=== PATIENT | female | born 1960 | race Caucasian/White ===

== ENCOUNTER 2024-05-04 09:48 | Inpatient (IN) | payer MEDICAID ==
[~2024-05-04] VITALS: Ht 162.6 cm; Wt 79.5 kg
[2024-05-04] VITALS (29 sets, daily range): BP systolic 100–148; BP diastolic 60–91; PULSE 87–113; RESP 14–26; TEMP 98.4–99.6; O2SAT 90–100
[2024-05-04] MEDS: ringers solution, lacted 1,000 ML IV SCH (08:00)
[2024-05-04] MEDS: morphine 4 MG/ML inj SYRINge IV ONE ×2 (08:00→11:13)
[~2024-05-04 09:48] MED LIST: ALBUTEROL INH; BACL20TA PO; BUPR100T4 PO; BUSP10TA11 PO; LEVA15HF4 IH; LISI20TA28 PO; ONDA4TAB6 PO; OXYC-150 PO
[2024-05-04 11:04] LABS: BASOPHILS # (AUTO) 0.1 X10'3 (0-0.2); BASOPHILS % (AUTO) 0.4 % (0-1); EOSINOPHILS % (AUTO) 0.2 % (0-6); HEMATOCRIT 49.5 % (35.0-45.0); HEMOGLOBIN 16.7 g/dl (12.0-16.0); LYMPHOCYTES # (AUTO) 0.7 X10'3 (1.1-4.8); MEAN CORPUSCULAR HEMOGLOBIN 29.7 PG (27.0-31.0); MEAN CORPUSCULAR HGB CONC 33.8 g/dL (33.0-36.5); MEAN PLATELET VOLUME 8.1 FL (7.4-10.4); MONOCYTES # (AUTO) 0.8 X10'3 (0-0.9); MONOCYTES % (AUTO) 6.6 % (2-12); NEUTROPHILS # (AUTO) 10.8 X10'3 (1.8-7.7); NEUTROPHILS % (AUTO) 86.8 % (42-75); PLATELET COUNT 366 X10'3 (140-440); RED BLOOD COUNT 5.62 X10'6 (4.20-5.60); RED CELL DISTRIBUTION WIDTH 13.6 % (11.5-14.5); WHITE BLOOD COUNT 12.4 X10'3 (4.5-11.0)
[2024-05-04 11:18] LABS: ALANINE AMINOTRANSFERASE 28 U/L (12-78); ALBUMIN 2.5 G/DL (3.4-5.0); ALBUMIN/GLOBULIN RATIO 0.6 (1.1-1.5); ALKALINE PHOSPHATASE 75 IU/L (46-116); ANION GAP 10 (8-16); ASPARTATE AMINO TRANSFERASE 45 U/L (10-37); BILIRUBIN,TOTAL 0.9 MG/DL (0.1-1.0); BLOOD UREA NITROGEN 13 MG/DL (7-18); BUN/CREATININE RATIO 19.7 (10.0-20.0); CALCIUM 7.9 MG/DL (8.5-10.1); CHLORIDE 102 MMOL/L (99-107); CREATININE 0.66 MG/DL (0.40-0.90); GLUCOSE 142 MG/DL (70-104); POTASSIUM 3.5 MMOL/L (3.5-5.1); SODIUM 134 MMOL/L (135-145); TOTAL PROTEIN 6.7 G/DL (6.4-8.2); eCRCL 75 ML/MIN; eGFR 90 ML/MIN
[2024-05-04] MEDS: VANCOMYCIN 1,500MG inj. 1,500 MG in normal saline 500ml IV soln 300 ML IV STA (11:29)
[2024-05-04 13:10] LABS: CREATINE KINASE 804 U/L (26-192)
[2024-05-04] MEDS: normal saline 1000ml 1,000 ML IV ONE (13:45)
[2024-05-04 14:08] LABS: C-REACTIVE PROTEIN 17.29 MG/DL (0.0-0.5)
[2024-05-04] MEDS ORDERED: ceFAZolin 2gm in dextrose, iso 100 ML IV ONE (14:20)
[2024-05-04] MEDS ORDERED: HYDROmorphone/PF 0.2 MG/ML SYRINGE IV PRN (14:25)
[2024-05-04] MEDS ORDERED: proCHLORperazine 10 MG/2 ml inj IV PRN (14:25)
[2024-05-04] MEDS ORDERED: meperidine/PF 25mg/ml syringe IV PRN (14:25)
[2024-05-04] MEDS ORDERED: morphine 2 MG/ML inj. syringe IV PRN (14:25)
[2024-05-04] MEDS ORDERED: labetalol 20mg/4ml (5mg/ml) syringe IV PRN (14:25)
[2024-05-04] MEDS ORDERED: ondansetron/PF 4mg/2ml inj IV PRN (14:25)
[2024-05-04] MEDS ORDERED: hydrALAZINE 20mg/ml inj. IV PRN (14:25)
[2024-05-04] MEDS: ceFAZolin 2gm in dextrose, iso 50 ML IV ONE (14:26)
[2024-05-04] MEDS ORDERED: vancomycin 1,000mg inj ONE (14:27)
[2024-05-04] MEDS ORDERED: BUPIVAcaine 2.5mg/ml inj 50ml vial (contains preservative) ONE (14:27)
[2024-05-04] MEDS ORDERED: sevoflurane 250ml liquid IH ONE (14:31)
[2024-05-04] MEDS ORDERED: midazolam 1 mg/ML 2ml injection ONE (14:35)
[2024-05-04] MEDS ORDERED: fentaNYL /PF 50mcg/ml 5ml ampule ONE (14:35)
[2024-05-04] MEDS ORDERED: tranexamic acid 100mg/ml inj. ONE (14:43)
[2024-05-04] MEDS ORDERED: propofol inj 20 ML IV ONE (14:51)
[2024-05-04] MEDS ORDERED: LIDOcaine 2% (20mg/ml) 5ml vial ONE (14:51)
[2024-05-04] MEDS ORDERED: dexamethasone sod phosphate 4mg/ml inj. ONE (14:52)
[2024-05-04] MEDS ORDERED: ondansetron/PF 4mg/2ml inj ONE (14:52)
[2024-05-04] MEDS ORDERED: ePHEDrine 50MG/ML INJ. ONE (14:53)
[2024-05-04] MEDS ORDERED: 0.9 % SODIUM CHLORIDE 10 ML VIAL ONE (14:53)
[2024-05-04] MEDS ORDERED: HYDROcodone/acetaminophen 5mg/325mg tablet PO PRN (15:15)
[2024-05-04] MEDS ORDERED: bisacodyl 10mg suppository rectal RC PRN (15:15)
[2024-05-04] MEDS ORDERED: acetaminophen 650mg rectal suppository RC PRN (15:15)
[2024-05-04] MEDS ORDERED: acetaminophen 325mg tablet PO PRN ×2 (15:15)
[2024-05-04] MEDS ORDERED: diphenhydrAMINE 25mg capsule PO PRN (15:15)
[2024-05-04] MEDS ORDERED: diphenhydrAMINE 50 mg/ml inj IV PRN (15:15)
[2024-05-04] MEDS: morphine 4 MG/ML inj SYRINge IV PRN (15:42)
[2024-05-04] MEDS: acetaminophen 1,000mg/100ml IV 100 ML IV ONE (15:44)
[2024-05-04] MEDS: HYDROmorphone/PF 0.2 MG/ML SYRINGE IV PRN (15:47)
[2024-05-04 15:54] LABS: MAGNESIUM 1.8 MG/DL (1.5-2.4); PHOSPHORUS 2.9 MG/DL (2.3-4.5); PRO BRAIN NATRIURETIC PEPTIDE 76 PG/ML (0-125)
[2024-05-04] MEDS: piperacillin/tazo 4.5gm/100ml 100 ML IV SCH (16:40)
[2024-05-04 17:34] LABS: APTT 26 SECONDS (22-32); INR 1.4 INR; PROTHROMBIN TIME 14.4 SECONDS (9.0-12.0)
[2024-05-04 18:58] LABS: BILIRUBIN,URINE NEGATIVE (Neg); CLARITY,URINE CLOUDY (Clear); COLOR,URINE YELLOW (Yellow); GLUCOSE, URINE NEGATIVE (Neg); KETONES,URINE TRACE mg/dl (Neg); LEUKOCYTE ESTERASE ,URINE NEGATIVE (Neg); NITRITES, URINE NEGATIVE (Neg); OCCULT BLOOD,URINE TRACE-INTACT (Neg); PH,URINE 5.5 (4.8-8.0); PROTEIN,URINE 30 mg/dl (Neg); UROBILINOGEN,URINE 0.2 E.U/dL (0.2-1.0)
[2024-05-04 19:09] LABS: UA COLLECTION TYPE NON-SPECIFIED
[2024-05-04 19:10] LABS: BACTERIA,URINE 2+ /HPF (Neg); RBC,URINE 0-2 /HPF (0-2); SQUAMOUS EPITHELIAL CELL,UR MODERATE /LPF (FEW); WBC,URINE 20-30 /HPF (0-4)
[2024-05-04] MEDS: docusate sod 100mg capsule PO SCH (20:41)
[2024-05-04] MEDS: HYDROcodone/acetaminophen 10/325mg tab PO PRN (20:42)
[2024-05-04] MEDS: VANCOMYCIN 1GM 200ML H20 (PEG) 200 ML IV SCH (21:28)
[2024-05-05] VITALS (17 sets, daily range): BP systolic 121–146; BP diastolic 58–90; PULSE 76–92; RESP 12–19; TEMP 97.5–98.9; O2SAT 90–100
[2024-05-05] MEDS: normal saline 1000ml 1,000 ML IV SCH (01:19)
[2024-05-05 06:10] LABS: BASOPHILS % (AUTO) 0.3 % (0-1); EOSINOPHILS % (AUTO) 0.1 % (0-6); HEMATOCRIT 44.7 % (35.0-45.0); HEMOGLOBIN 15.1 g/dl (12.0-16.0); LYMPHOCYTES # (AUTO) 0.7 X10'3 (1.1-4.8); LYMPHOCYTES % (AUTO) 5.9 % (21-51); MEAN CORPUSCULAR HGB CONC 33.9 g/dL (33.0-36.5); MEAN CORPUSCULAR VOLUME 88.7 FL (78-98); MEAN PLATELET VOLUME 8.4 FL (7.4-10.4); MONOCYTES # (AUTO) 0.9 X10'3 (0-0.9); MONOCYTES % (AUTO) 7.2 % (2-12); NEUTROPHILS # (AUTO) 10.8 X10'3 (1.8-7.7); NEUTROPHILS % (AUTO) 86.5 % (42-75); PLATELET COUNT 389 X10'3 (140-440); RED BLOOD COUNT 5.03 X10'6 (4.20-5.60); RED CELL DISTRIBUTION WIDTH 13.8 % (11.5-14.5); WHITE BLOOD COUNT 12.5 X10'3 (4.5-11.0)
[2024-05-05 06:46] LABS: ALANINE AMINOTRANSFERASE 26 U/L (12-78); ALBUMIN 1.9 G/DL (3.4-5.0); ALBUMIN/GLOBULIN RATIO 0.4 (1.1-1.5); ALKALINE PHOSPHATASE 69 IU/L (46-116); ANION GAP 12 (8-16); BILIRUBIN,TOTAL 0.5 MG/DL (0.1-1.0); BLOOD UREA NITROGEN 18 MG/DL (7-18); BUN/CREATININE RATIO 18.8 (10.0-20.0); CALCIUM 7.6 MG/DL (8.5-10.1); CHLORIDE 101 MMOL/L (99-107); CHOLESTEROL 158 MG/DL (0-200); CREATININE 0.96 MG/DL (0.40-0.90); GLUCOSE 183 MG/DL (70-104); HDL CHOLESTEROL 36 MG/DL (35-60); SODIUM 132 MMOL/L (135-145); TOTAL CARBON DIOXIDE 19.5 MMOL/L (24-32); TOTAL PROTEIN 6.2 G/DL (6.4-8.2); eCRCL 54 ML/MIN; eGFR 59 ML/MIN
[2024-05-05 06:47] LABS: CHOL/HDL RATIO 4.4 (0.00-4.99); LDL CHOLESTEROL 92 MG/DL (50-100); TRIGLYCERIDES 146 MG/DL (20-135)
[2024-05-05 06:58] LABS: ASPARTATE AMINO TRANSFERASE 53 U/L (10-37); POTASSIUM 4.4 MMOL/L (3.5-5.1)
[2024-05-05] MEDS: pantoprazole 40mg Tablet.DR PO SCH (08:34)
[2024-05-05 15:30] LABS: C-REACTIVE PROTEIN 16.77 MG/DL (0.0-0.5)
[2024-05-05] MEDS ORDERED: sevoflurane 250ml liquid IH ONE (16:28)
[2024-05-05] MEDS ORDERED: fentaNYL/PF 50MCG/1 ML 2ML syringe ONE (16:29)
[2024-05-05] MEDS ORDERED: midazolam 1 mg/ML 2ml injection ONE (16:30)
[2024-05-05] MEDS ORDERED: propofol inj 20 ML IV ONE (16:31)
[2024-05-05] MEDS ORDERED: proCHLORperazine 10 MG/2 ml inj IV PRN (17:25)
[2024-05-05] MEDS ORDERED: morphine 2 MG/ML inj. syringe IV PRN (17:25)
[2024-05-05] MEDS ORDERED: morphine 4 MG/ML inj SYRINge IV PRN (17:25)
[2024-05-05] MEDS ORDERED: meperidine/PF 25mg/ml syringe IV PRN ×2 (17:25)
[2024-05-05] MEDS ORDERED: ondansetron/PF 4mg/2ml inj IV PRN (17:25)
[2024-05-05] MEDS: meperidine/PF 25mg/ml syringe IV PRN (17:36)
[2024-05-05] MEDS: ringers solution, lacted 1,000 ML IV SCH (18:16)
[2024-05-05] MEDS: VANCOMYCIN LEVEL IV ONE (20:16)
[2024-05-05] MEDS: morphine 2 MG/ML inj. syringe IV PRN (20:21)
[2024-05-06 02:00] VITALS: BP 124/66; PULSE 82; RESP 17; TEMP 97.6; O2SAT 97
[2024-05-06 06:00] VITALS: BP 124/70; PULSE 78; RESP 17; TEMP 97.3; O2SAT 96
[2024-05-06 07:15] LABS: BASOPHILS % (AUTO) 0.2 % (0-1); EOSINOPHILS % (AUTO) 0 % (0-6); HEMATOCRIT 44.4 % (35.0-45.0); HEMOGLOBIN 15.2 g/dl (12.0-16.0); LYMPHOCYTES # (AUTO) 1.2 X10'3 (1.1-4.8); LYMPHOCYTES % (AUTO) 13.1 % (21-51); MEAN CORPUSCULAR HEMOGLOBIN 30.3 PG (27.0-31.0); MEAN CORPUSCULAR HGB CONC 34.2 g/dL (33.0-36.5); MEAN CORPUSCULAR VOLUME 88.5 FL (78-98); MEAN PLATELET VOLUME 8.9 FL (7.4-10.4); MONOCYTES # (AUTO) 1.2 X10'3 (0-0.9); NEUTROPHILS # (AUTO) 6.8 X10'3 (1.8-7.7); NEUTROPHILS % (AUTO) 73.7 % (42-75); PLATELET COUNT 196 X10'3 (140-440); RED BLOOD COUNT 5.01 X10'6 (4.20-5.60); RED CELL DISTRIBUTION WIDTH 13.9 % (11.5-14.5); WHITE BLOOD COUNT 9.2 X10'3 (4.5-11.0)
[2024-05-06 07:36] LABS: ALANINE AMINOTRANSFERASE 20 U/L (12-78); ALBUMIN 1.8 G/DL (3.4-5.0); ALBUMIN/GLOBULIN RATIO 0.5 (1.1-1.5); ALKALINE PHOSPHATASE 53 IU/L (46-116); ANION GAP 9 (8-16); ASPARTATE AMINO TRANSFERASE 68 U/L (10-37); BILIRUBIN,TOTAL 0.4 MG/DL (0.1-1.0); BLOOD UREA NITROGEN 19 MG/DL (7-18); BUN/CREATININE RATIO 21.6 (10.0-20.0); C-REACTIVE PROTEIN 5.53 MG/DL (0.0-0.5); CALCIUM 7.3 MG/DL (8.5-10.1); CHLORIDE 101 MMOL/L (99-107); CREATININE 0.88 MG/DL (0.40-0.90); GLUCOSE 133 MG/DL (70-104); SODIUM 135 MMOL/L (135-145); TOTAL PROTEIN 5.7 G/DL (6.4-8.2); eCRCL 59 ML/MIN; eGFR 65 ML/MIN
[2024-05-06 07:38] LABS: POTASSIUM 4.3 MMOL/L (3.5-5.1)
[2024-05-06 10:00] VITALS: BP 167/81; PULSE 54; RESP 20; TEMP 98.8; O2SAT 92
[2024-05-06 10:30] VITALS: BP 146/69; PULSE 85; RESP 16; O2SAT 95
[2024-05-06 18:00] VITALS: BP 114/58; PULSE 71; RESP 16; TEMP 98.8; O2SAT 96
[2024-05-06] MEDS: VANCOMYCIN/WATER FOR INJ (PEG) 1.25GM/250 ML IVPB IV SCH (20:18)
[2024-05-06 21:35] LABS: CREATINE KINASE 1280 U/L (26-192)
[2024-05-06 22:00] VITALS: BP 111/50; PULSE 84; RESP 16; TEMP 98.8; O2SAT 95
[2024-05-06] MEDS: temazepam 15mg capsule PO PRN (22:25)
[2024-05-07 06:00] VITALS: BP 106/59; PULSE 83; RESP 17; TEMP 98.3; O2SAT 93
[2024-05-07 06:34] LABS: HEMATOCRIT 40.8 % (35.0-45.0); HEMOGLOBIN 13.7 g/dl (12.0-16.0); MEAN CORPUSCULAR HEMOGLOBIN 29.8 PG (27.0-31.0); MEAN CORPUSCULAR HGB CONC 33.7 g/dL (33.0-36.5); MEAN CORPUSCULAR VOLUME 88.4 FL (78-98); MEAN PLATELET VOLUME 7.6 FL (7.4-10.4); PLATELET COUNT 327 X10'3 (140-440); RED BLOOD COUNT 4.61 X10'6 (4.20-5.60); RED CELL DISTRIBUTION WIDTH 14.1 % (11.5-14.5); WHITE BLOOD COUNT 7.3 X10'3 (4.5-11.0)
[2024-05-07 06:35] LABS: BASOPHILS % (AUTO) 0.3 % (0-1); EOSINOPHILS % (AUTO) 0.1 % (0-6); LYMPHOCYTES % (AUTO) 14.3 % (21-51); MONOCYTES # (AUTO) 0.7 X10'3 (0-0.9); MONOCYTES % (AUTO) 10.3 % (2-12); NEUTROPHILS # (AUTO) 5.5 X10'3 (1.8-7.7)
[2024-05-07 06:43] LABS: ANION GAP 5 (8-16); BILIRUBIN,TOTAL 0.2 MG/DL (0.1-1.0); BLOOD UREA NITROGEN 14 MG/DL (7-18); BUN/CREATININE RATIO 19.2 (10.0-20.0); CALCIUM 6.8 MG/DL (8.5-10.1); CHLORIDE 101 MMOL/L (99-107); CREATININE 0.73 MG/DL (0.40-0.90); GLUCOSE 144 MG/DL (70-104); POTASSIUM 3.6 MMOL/L (3.5-5.1); SODIUM 133 MMOL/L (135-145); TOTAL CARBON DIOXIDE 26.8 MMOL/L (24-32); eCRCL 71 ML/MIN; eGFR 81 ML/MIN
[2024-05-07 06:44] LABS: ALANINE AMINOTRANSFERASE 23 U/L (12-78); ALBUMIN 1.5 G/DL (3.4-5.0); ALBUMIN/GLOBULIN RATIO 0.4 (1.1-1.5); ALKALINE PHOSPHATASE 40 IU/L (46-116); ASPARTATE AMINO TRANSFERASE 81 U/L (10-37); C-REACTIVE PROTEIN 1.96 MG/DL (0.0-0.5); TOTAL PROTEIN 4.9 G/DL (6.4-8.2)
[2024-05-07 10:00] VITALS: BP 106/67; PULSE 81; RESP 16; TEMP 99.8; O2SAT 94
[2024-05-07] MEDS: ondansetron 4mg rapidly disintigrating tab PO PRN (15:56)
[2024-05-07 18:30] VITALS: BP 140/57; PULSE 78; RESP 22; TEMP 98.2; O2SAT 93
[2024-05-07] MEDS: ringers solution, lacted 1,000 ML IV ONE (20:30)
[2024-05-07 23:00] VITALS: BP 104/52; PULSE 80; RESP 20; TEMP 98.4; O2SAT 92
[2024-05-08] VITALS (8 sets, daily range): BP systolic 91–132; BP diastolic 48–77; PULSE 66–86; RESP 16–22; TEMP 97.4–98; O2SAT 91–98
[2024-05-08] MEDS: VANCOMYCIN LEVEL IV ONE (07:30)
[2024-05-08 09:22] LABS: BASOPHILS % (AUTO) 0.5 % (0-1); EOSINOPHILS % (AUTO) 0.1 % (0-6); HEMATOCRIT 42.5 % (35.0-45.0); HEMOGLOBIN 14.3 g/dl (12.0-16.0); LYMPHOCYTES # (AUTO) 1.8 X10'3 (1.1-4.8); MEAN CORPUSCULAR HEMOGLOBIN 29.7 PG (27.0-31.0); MEAN CORPUSCULAR HGB CONC 33.7 g/dL (33.0-36.5); MEAN CORPUSCULAR VOLUME 88.3 FL (78-98); MEAN PLATELET VOLUME 8.9 FL (7.4-10.4); MONOCYTES # (AUTO) 0.7 X10'3 (0-0.9); MONOCYTES % (AUTO) 9.9 % (2-12); NEUTROPHILS # (AUTO) 4.3 X10'3 (1.8-7.7); NEUTROPHILS % (AUTO) 63.5 % (42-75); PLATELET COUNT 193 X10'3 (140-440); RED BLOOD COUNT 4.81 X10'6 (4.20-5.60); RED CELL DISTRIBUTION WIDTH 13.9 % (11.5-14.5); WHITE BLOOD COUNT 6.8 X10'3 (4.5-11.0)
[2024-05-08 09:47] LABS: ALANINE AMINOTRANSFERASE 23 U/L (12-78); ALBUMIN 1.2 G/DL (3.4-5.0); ALBUMIN/GLOBULIN RATIO 0.4 (1.1-1.5); ALKALINE PHOSPHATASE 41 IU/L (46-116); ANION GAP 6 (8-16); ASPARTATE AMINO TRANSFERASE 66 U/L (10-37); BILIRUBIN,TOTAL 0.2 MG/DL (0.1-1.0); BLOOD UREA NITROGEN 11 MG/DL (7-18); BUN/CREATININE RATIO 17.7 (10.0-20.0); C-REACTIVE PROTEIN 2.51 MG/DL (0.0-0.5); CHLORIDE 100 MMOL/L (99-107); CREATININE 0.62 MG/DL (0.40-0.90); GLUCOSE 200 MG/DL (70-104); POTASSIUM 3.6 MMOL/L (3.5-5.1); SODIUM 131 MMOL/L (135-145); TOTAL CARBON DIOXIDE 24.9 MMOL/L (24-32); TOTAL PROTEIN 4.3 G/DL (6.4-8.2); eCRCL 84 ML/MIN; eGFR > 90 ML/MIN
[2024-05-08] MEDS: HYDROmorphone/PF 0.2 MG/ML SYRINGE IV PRN (12:45)
[2024-05-08 14:12] LABS: CREATINE KINASE 819 U/L (26-192)
[2024-05-08 14:14] LABS: BILIRUBIN,URINE NEGATIVE (Neg); CLARITY,URINE CLOUDY (Clear); COLOR,URINE YELLOW (Yellow); GLUCOSE, URINE NEGATIVE (Neg); KETONES,URINE NEGATIVE (Neg); LEUKOCYTE ESTERASE ,URINE MODERATE (Neg); NITRITES, URINE NEGATIVE (Neg); OCCULT BLOOD,URINE MODERATE (Neg); PROTEIN,URINE NEGATIVE (Neg); UROBILINOGEN,URINE 0.2 E.U/dL (0.2-1.0)
[2024-05-08 14:17] LABS: UA COLLECTION TYPE CLN CATCH MIDSTREAM
[2024-05-08 14:22] LABS: BACTERIA,URINE 2+ /HPF (Neg); WBC,URINE TNTC /HPF (0-4)
[2024-05-08 14:23] LABS: MUCUS STRANDS FEW /LPF (Neg); RENAL CELLS, URINE FEW /HPF; SQUAMOUS EPITHELIAL CELL,UR MODERATE /LPF (FEW); TRANSITIONAL EPI CELLS,URINE FEW /HPF; WBC CLUMPS,URINE FEW /HPF (NEGATIVE)
[2024-05-08 14:31] LABS: OSMOLALITY 271 MOSM/K (280-300)
[2024-05-08] MEDS: VANCOMYCIN 1GM 200ML H20 (PEG) 200 ML IV SCH (19:05)
[2024-05-08] MEDS: magnesium hydroxide 30ml (MOM) UD suspension PO PRN (22:21)
[2024-05-08] MEDS: ipratropium/albuterol 3ml nebule NEB ONE (23:24)
[2024-05-09 06:00] VITALS: BP 127/63; PULSE 63; RESP 15; TEMP 98.2; O2SAT 95
[2024-05-09 06:07] LABS: BASOPHILS % (AUTO) 0.3 % (0-1); EOSINOPHILS % (AUTO) 0.5 % (0-6); HEMATOCRIT 40.2 % (35.0-45.0); HEMOGLOBIN 13.7 g/dl (12.0-16.0); LYMPHOCYTES # (AUTO) 1.5 X10'3 (1.1-4.8); LYMPHOCYTES % (AUTO) 22.5 % (21-51); MEAN CORPUSCULAR HEMOGLOBIN 29.6 PG (27.0-31.0); MEAN CORPUSCULAR HGB CONC 34.1 g/dL (33.0-36.5); MEAN CORPUSCULAR VOLUME 86.9 FL (78-98); MEAN PLATELET VOLUME 7.6 FL (7.4-10.4); MONOCYTES # (AUTO) 0.7 X10'3 (0-0.9); MONOCYTES % (AUTO) 10.9 % (2-12); NEUTROPHILS # (AUTO) 4.5 X10'3 (1.8-7.7); NEUTROPHILS % (AUTO) 65.8 % (42-75); PLATELET COUNT 338 X10'3 (140-440); RED BLOOD COUNT 4.63 X10'6 (4.20-5.60); RED CELL DISTRIBUTION WIDTH 13.8 % (11.5-14.5); WHITE BLOOD COUNT 6.8 X10'3 (4.5-11.0)
[2024-05-09 06:43] LABS: GLUCOSE 122 MG/DL (70-104)
[2024-05-09 06:44] LABS: ALANINE AMINOTRANSFERASE 23 U/L (12-78); ALBUMIN 1.3 G/DL (3.4-5.0); ALBUMIN/GLOBULIN RATIO 0.4 (1.1-1.5); ALKALINE PHOSPHATASE 39 IU/L (46-116); ANION GAP 6 (8-16); ASPARTATE AMINO TRANSFERASE 60 U/L (10-37); BILIRUBIN,TOTAL 0.2 MG/DL (0.1-1.0); BLOOD UREA NITROGEN 10 MG/DL (7-18); BUN/CREATININE RATIO 17.2 (10.0-20.0); CALCIUM 6.6 MG/DL (8.5-10.1); CHLORIDE 102 MMOL/L (99-107); CREATININE 0.58 MG/DL (0.40-0.90); POTASSIUM 3.5 MMOL/L (3.5-5.1); SODIUM 134 MMOL/L (135-145); TOTAL CARBON DIOXIDE 25.7 MMOL/L (24-32); TOTAL PROTEIN 4.3 G/DL (6.4-8.2); eCRCL 89 ML/MIN; eGFR > 90 ML/MIN
[2024-05-09] MEDS: multivitamins, therapeutics tablet PO SCH (13:36)
[2024-05-09] MEDS: JUVEN Smoothie Arginine/Glut./Ca2+Bmb (Juven 19.3pkt) 240ml cup PO SCH (17:44)
[2024-05-09 18:00] VITALS: BP 133/72; PULSE 72; RESP 18; TEMP 97.6; O2SAT 98
[2024-05-09] MEDS: VANCOMYCIN LEVEL IV ONE (18:30)
[2024-05-09 20:00] VITALS: RESP 18; O2SAT 96
[2024-05-09] MEDS: mag hydrox/Alum hydrox/simeth 30ml oral suspension PO PRN (20:55)
[2024-05-09 22:00] VITALS: BP 112/60; PULSE 71; RESP 17; TEMP 98.4; O2SAT 98
[2024-05-10 07:33] VITALS: BP 112/57; PULSE 67; RESP 18; TEMP 98; O2SAT 97
[2024-05-10 07:45] VITALS: RESP 16
[2024-05-10 09:59] LABS: BASOPHILS % (AUTO) 0.3 % (0-1); EOSINOPHILS # (AUTO) 0.2 X10'3 (0-0.9); EOSINOPHILS % (AUTO) 2.2 % (0-6); HEMATOCRIT 38.6 % (35.0-45.0); HEMOGLOBIN 13.1 g/dl (12.0-16.0); LYMPHOCYTES # (AUTO) 1.8 X10'3 (1.1-4.8); LYMPHOCYTES % (AUTO) 26.4 % (21-51); MEAN CORPUSCULAR HEMOGLOBIN 29.6 PG (27.0-31.0); MEAN CORPUSCULAR VOLUME 87.2 FL (78-98); MEAN PLATELET VOLUME 7.2 FL (7.4-10.4); MONOCYTES # (AUTO) 0.6 X10'3 (0-0.9); MONOCYTES % (AUTO) 8.4 % (2-12); NEUTROPHILS # (AUTO) 4.3 X10'3 (1.8-7.7); NEUTROPHILS % (AUTO) 62.7 % (42-75); PLATELET COUNT 399 X10'3 (140-440); RED BLOOD COUNT 4.43 X10'6 (4.20-5.60); RED CELL DISTRIBUTION WIDTH 14.1 % (11.5-14.5); WHITE BLOOD COUNT 6.8 X10'3 (4.5-11.0)
[2024-05-10 10:00] VITALS: BP 119/61; PULSE 65; RESP 20; TEMP 97.5; O2SAT 95
[2024-05-10 10:31] LABS: ALANINE AMINOTRANSFERASE 19 U/L (12-78); ALBUMIN 1.2 G/DL (3.4-5.0); ALBUMIN/GLOBULIN RATIO 0.4 (1.1-1.5); ALKALINE PHOSPHATASE 40 IU/L (46-116); ANION GAP 7 (8-16); ASPARTATE AMINO TRANSFERASE 43 U/L (10-37); BILIRUBIN,TOTAL 0.2 MG/DL (0.1-1.0); BLOOD UREA NITROGEN 11 MG/DL (7-18); BUN/CREATININE RATIO 18.6 (10.0-20.0); CHLORIDE 101 MMOL/L (99-107); CREATININE 0.59 MG/DL (0.40-0.90); GLUCOSE 218 MG/DL (70-104); POTASSIUM 3.4 MMOL/L (3.5-5.1); SODIUM 132 MMOL/L (135-145); TOTAL CARBON DIOXIDE 24.3 MMOL/L (24-32); TOTAL PROTEIN 4.6 G/DL (6.4-8.2); eCRCL 88 ML/MIN; eGFR > 90 ML/MIN
[2024-05-10] MEDS ORDERED: potassium Cl 20 mEq SR tablet PO PRN (11:15)
[2024-05-10] MEDS: potassium Cl 20 mEq SR tablet PO PRN (11:34)
[2024-05-10] MEDS: oxyCODONE/APAP 10/325mg tablet PO PRN (11:36)
[2024-05-10] MEDS ORDERED: acetaminophen 325mg tablet PO PRN (15:45)
[2024-05-10 18:00] VITALS: BP 110/54; PULSE 70; RESP 20; TEMP 98.1; O2SAT 97
[2024-05-10] MEDS: heparin, porcine 5000 units/ml vial SQ SCH (19:36)
[2024-05-10] MEDS: HYDROmorphone/PF 0.2 MG/ML SYRINGE IV PRN ×2 (19:38→23:12)
[2024-05-10 20:00] VITALS: RESP 20; O2SAT 97
[2024-05-10] MEDS: VANCOMYCIN/WATER FOR INJ (PEG) 1.25GM/250 ML IVPB IV SCH (21:57)
[2024-05-10 22:00] VITALS: BP 126/67; PULSE 74; RESP 16; TEMP 98.4; O2SAT 96
[2024-05-11] VITALS (9 sets, daily range): BP systolic 110–185; BP diastolic 59–83; PULSE 65–74; RESP 14–20; TEMP 97.1–98.6; O2SAT 93–99
[2024-05-11 04:33] LABS: BASOPHILS % (AUTO) 0.4 % (0-1); EOSINOPHILS # (AUTO) 0.3 X10'3 (0-0.9); EOSINOPHILS % (AUTO) 4.4 % (0-6); HEMATOCRIT 36.2 % (35.0-45.0); LYMPHOCYTES % (AUTO) 32.3 % (21-51); MEAN CORPUSCULAR HGB CONC 33.2 g/dL (33.0-36.5); MEAN CORPUSCULAR VOLUME 87.2 FL (78-98); MEAN PLATELET VOLUME 7.5 FL (7.4-10.4); MONOCYTES # (AUTO) 0.7 X10'3 (0-0.9); MONOCYTES % (AUTO) 10.6 % (2-12); NEUTROPHILS # (AUTO) 3.2 X10'3 (1.8-7.7); NEUTROPHILS % (AUTO) 52.3 % (42-75); PLATELET COUNT 396 X10'3 (140-440); RED BLOOD COUNT 4.15 X10'6 (4.20-5.60); RED CELL DISTRIBUTION WIDTH 13.9 % (11.5-14.5); WHITE BLOOD COUNT 6.2 X10'3 (4.5-11.0)
[2024-05-11] MEDS: hydrALAZINE 20mg/ml inj. IV ONE (04:40)
[2024-05-11 04:52] LABS: ALANINE AMINOTRANSFERASE 17 U/L (12-78); ALBUMIN 1.2 G/DL (3.4-5.0); ALBUMIN/GLOBULIN RATIO 0.4 (1.1-1.5); ALKALINE PHOSPHATASE 42 IU/L (46-116); ANION GAP 6 (8-16); ASPARTATE AMINO TRANSFERASE 37 U/L (10-37); BILIRUBIN,TOTAL 0.2 MG/DL (0.1-1.0); BLOOD UREA NITROGEN 12 MG/DL (7-18); BUN/CREATININE RATIO 21.1 (10.0-20.0); CALCIUM 7.3 MG/DL (8.5-10.1); CHLORIDE 102 MMOL/L (99-107); CREATININE 0.57 MG/DL (0.40-0.90); GLUCOSE 123 MG/DL (70-104); POTASSIUM 3.9 MMOL/L (3.5-5.1); SODIUM 133 MMOL/L (135-145); TOTAL CARBON DIOXIDE 25.2 MMOL/L (24-32); TOTAL PROTEIN 4.6 G/DL (6.4-8.2); eCRCL 91 ML/MIN; eGFR > 90 ML/MIN
[2024-05-11] MEDS: piperacillin/tazo 4.5gm/100ml 100 ML IV SCH (10:19)
[2024-05-11] MEDS ORDERED: LORazepam 2 mg/ml vial IV PRN (12:30)
[2024-05-11] MEDS: furosemide 40mg/4ml inj IV ONE (12:54)
[2024-05-11] MEDS: LORazepam 2 mg/ml vial IV ONE (12:54)
[2024-05-11] MEDS: VANCOMYCIN LEVEL IV ONE (19:30)
[2024-05-12 04:42] LABS: BASOPHILS % (AUTO) 0.5 % (0-1); EOSINOPHILS # (AUTO) 0.4 X10'3 (0-0.9); EOSINOPHILS % (AUTO) 6.6 % (0-6); HEMATOCRIT 35.3 % (35.0-45.0); LYMPHOCYTES # (AUTO) 2.1 X10'3 (1.1-4.8); LYMPHOCYTES % (AUTO) 31.8 % (21-51); MEAN CORPUSCULAR HEMOGLOBIN 29.6 PG (27.0-31.0); MEAN CORPUSCULAR HGB CONC 33.9 g/dL (33.0-36.5); MEAN CORPUSCULAR VOLUME 87.3 FL (78-98); MONOCYTES # (AUTO) 0.7 X10'3 (0-0.9); MONOCYTES % (AUTO) 10.5 % (2-12); NEUTROPHILS # (AUTO) 3.3 X10'3 (1.8-7.7); NEUTROPHILS % (AUTO) 50.6 % (42-75); PLATELET COUNT 442 X10'3 (140-440); RED BLOOD COUNT 4.04 X10'6 (4.20-5.60); RED CELL DISTRIBUTION WIDTH 13.8 % (11.5-14.5); WHITE BLOOD COUNT 6.5 X10'3 (4.5-11.0)
[2024-05-12 05:26] LABS: ALANINE AMINOTRANSFERASE 18 U/L (12-78); ALBUMIN 1.4 G/DL (3.4-5.0); ALBUMIN/GLOBULIN RATIO 0.4 (1.1-1.5); ALKALINE PHOSPHATASE 40 IU/L (46-116); ANION GAP 5 (8-16); ASPARTATE AMINO TRANSFERASE 42 U/L (10-37); BILIRUBIN,TOTAL 0.2 MG/DL (0.1-1.0); BLOOD UREA NITROGEN 15 MG/DL (7-18); BUN/CREATININE RATIO 23.1 (10.0-20.0); CALCIUM 7.2 MG/DL (8.5-10.1); CHLORIDE 105 MMOL/L (99-107); CREATININE 0.65 MG/DL (0.40-0.90); GLUCOSE 108 MG/DL (70-104); POTASSIUM 3.5 MMOL/L (3.5-5.1); SODIUM 137 MMOL/L (135-145); TOTAL CARBON DIOXIDE 26.9 MMOL/L (24-32); eCRCL 80 ML/MIN; eGFR > 90 ML/MIN
[2024-05-12 06:00] VITALS: BP 119/65; PULSE 67; RESP 20; TEMP 98.4; O2SAT 95
[2024-05-12 10:00] VITALS: BP 119/60; PULSE 72; RESP 17; TEMP 98.1; O2SAT 97
[2024-05-12 13:00] VITALS: RESP 16; O2SAT 97
[2024-05-12] MEDS ORDERED: morphine 2 MG/ML inj. syringe IV PRN (14:20)
[2024-05-12 18:00] VITALS: BP 143/70; PULSE 77; RESP 18; TEMP 97.4; O2SAT 97
[2024-05-12 20:00] VITALS: RESP 18; O2SAT 97
[2024-05-12 22:21] VITALS: BP 156/82; PULSE 77; RESP 22; TEMP 97.5; O2SAT 97
[2024-05-13] VITALS (7 sets, daily range): BP systolic 108–162; BP diastolic 46–81; PULSE 51–89; RESP 16–20; TEMP 98–98.4; O2SAT 92–99
[2024-05-13 04:49] LABS: BASOPHILS % (AUTO) 0.5 % (0-1); EOSINOPHILS # (AUTO) 0.4 X10'3 (0-0.9); EOSINOPHILS % (AUTO) 5.9 % (0-6); HEMATOCRIT 30.9 % (35.0-45.0); HEMOGLOBIN 10.7 g/dl (12.0-16.0); LYMPHOCYTES # (AUTO) 1.9 X10'3 (1.1-4.8); MEAN CORPUSCULAR HGB CONC 34.7 g/dL (33.0-36.5); MEAN CORPUSCULAR VOLUME 86.4 FL (78-98); MEAN PLATELET VOLUME 7.4 FL (7.4-10.4); MONOCYTES # (AUTO) 0.6 X10'3 (0-0.9); MONOCYTES % (AUTO) 9.2 % (2-12); NEUTROPHILS # (AUTO) 3.6 X10'3 (1.8-7.7); NEUTROPHILS % (AUTO) 55.4 % (42-75); PLATELET COUNT 468 X10'3 (140-440); RED BLOOD COUNT 3.58 X10'6 (4.20-5.60); RED CELL DISTRIBUTION WIDTH 13.8 % (11.5-14.5); WHITE BLOOD COUNT 6.5 X10'3 (4.5-11.0)
[2024-05-13 05:11] LABS: ALANINE AMINOTRANSFERASE 20 U/L (12-78); ALBUMIN 1.3 G/DL (3.4-5.0); ALBUMIN/GLOBULIN RATIO 0.4 (1.1-1.5); ALKALINE PHOSPHATASE 44 IU/L (46-116); ANION GAP 4 (8-16); ASPARTATE AMINO TRANSFERASE 28 U/L (10-37); BILIRUBIN,TOTAL 0.3 MG/DL (0.1-1.0); BLOOD UREA NITROGEN 14 MG/DL (7-18); BUN/CREATININE RATIO 22.6 (10.0-20.0); CALCIUM 7.2 MG/DL (8.5-10.1); CHLORIDE 106 MMOL/L (99-107); CREATININE 0.62 MG/DL (0.40-0.90); GLUCOSE 105 MG/DL (70-104); POTASSIUM 3.8 MMOL/L (3.5-5.1); SODIUM 137 MMOL/L (135-145); TOTAL CARBON DIOXIDE 27.4 MMOL/L (24-32); TOTAL PROTEIN 4.9 G/DL (6.4-8.2); eCRCL 84 ML/MIN; eGFR > 90 ML/MIN
[2024-05-13] MEDS: LORazepam 2 mg/ml vial IV PRN (09:57)
[2024-05-14] VITALS (9 sets, daily range): BP systolic 152–179; BP diastolic 69–88; PULSE 65–78; RESP 16–20; TEMP 97.9–98.6; O2SAT 95–99
[2024-05-14 07:25] LABS: BASOPHILS % (AUTO) 0.3 % (0-1); EOSINOPHILS # (AUTO) 0.2 X10'3 (0-0.9); EOSINOPHILS % (AUTO) 4.1 % (0-6); HEMATOCRIT 23.4 % (35.0-45.0); HEMOGLOBIN 7.8 g/dl (12.0-16.0); LYMPHOCYTES # (AUTO) 1.2 X10'3 (1.1-4.8); LYMPHOCYTES % (AUTO) 20.8 % (21-51); MEAN CORPUSCULAR HEMOGLOBIN 29.4 PG (27.0-31.0); MEAN CORPUSCULAR HGB CONC 33.2 g/dL (33.0-36.5); MEAN CORPUSCULAR VOLUME 88.7 FL (78-98); MEAN PLATELET VOLUME 7.2 FL (7.4-10.4); MONOCYTES # (AUTO) 0.5 X10'3 (0-0.9); MONOCYTES % (AUTO) 8.8 % (2-12); NEUTROPHILS # (AUTO) 3.9 X10'3 (1.8-7.7); PLATELET COUNT 437 X10'3 (140-440); RED BLOOD COUNT 2.64 X10'6 (4.20-5.60); RED CELL DISTRIBUTION WIDTH 13.9 % (11.5-14.5); WHITE BLOOD COUNT 5.9 X10'3 (4.5-11.0)
[2024-05-14 07:54] LABS: ALANINE AMINOTRANSFERASE 17 U/L (12-78); ALBUMIN 1.2 G/DL (3.4-5.0); ALBUMIN/GLOBULIN RATIO 0.3 (1.1-1.5); ALKALINE PHOSPHATASE 39 IU/L (46-116); ANION GAP 6 (8-16); ASPARTATE AMINO TRANSFERASE 25 U/L (10-37); BILIRUBIN,TOTAL 0.4 MG/DL (0.1-1.0); BLOOD UREA NITROGEN 12 MG/DL (7-18); BUN/CREATININE RATIO 21.1 (10.0-20.0); CALCIUM 6.6 MG/DL (8.5-10.1); CHLORIDE 108 MMOL/L (99-107); CREATININE 0.57 MG/DL (0.40-0.90); GLUCOSE 93 MG/DL (70-104); POTASSIUM 3.4 MMOL/L (3.5-5.1); SODIUM 138 MMOL/L (135-145); TOTAL CARBON DIOXIDE 24.4 MMOL/L (24-32); TOTAL PROTEIN 4.8 G/DL (6.4-8.2); eCRCL 91 ML/MIN; eGFR > 90 ML/MIN
[2024-05-14] MEDS: ipratropium/albuterol 3ml nebule NEB PRN (08:17)
[2024-05-14] MEDS: furosemide 40mg/4ml inj IV SCH (08:22)
[2024-05-14] MEDS ORDERED: mag hydrox/Alum hydrox/simeth 30ml oral suspension PO PRN (14:30)
[2024-05-14] MEDS ORDERED: magnesium sulf-water 4G/100mL 100 ML IV PRN (14:30)
[2024-05-14] MEDS ORDERED: magnesium sulf-water 2g/50mL 50 ML IV PRN (14:30)
[2024-05-14] MEDS ORDERED: potassium Cl 40MEQ/1/2NS 520ml 520 ML IV PRN (14:30)
[2024-05-14] MEDS: potassium Cl 20 mEq SR tablet PO PRN ×2 (14:56→20:43)
[2024-05-14] MEDS ORDERED: ketorolac trometh 30MG/ML vial 30 MG/ML VIAL IV PRN (16:30)
[2024-05-14] MEDS: HYDROmorphone inj. 0.5 MG/0.5 ML DISP.SYRIN IV PRN (18:00)
[2024-05-14] MEDS: docusate sod 100mg capsule PO SCH (20:42)
[2024-05-14] MEDS: K and/or MAG REPLACEMENT MC SCH (20:46)
[2024-05-14] MEDS ORDERED: gabapentin 300mg capsule PO SCH (21:00)
[2024-05-15] VITALS (8 sets, daily range): BP systolic 136–156; BP diastolic 54–76; PULSE 70–82; RESP 16–18; TEMP 98.1–98.2; O2SAT 93–98
[2024-05-15] MEDS: HYDROmorphone/PF 0.2 MG/ML SYRINGE IV PRN (00:56)
[2024-05-15 05:58] LABS: BASOPHILS # (AUTO) 0.1 X10'3 (0-0.2); EOSINOPHILS # (AUTO) 0.3 X10'3 (0-0.9); HEMOGLOBIN 11.6 g/dl (12.0-16.0); MONOCYTES # (AUTO) 0.8 X10'3 (0-0.9); MONOCYTES % (AUTO) 10.3 % (2-12); NEUTROPHILS % (AUTO) 61.2 % (42-75)
[2024-05-15 06:00] LABS: BASOPHILS % (AUTO) 1.2 % (0-1); EOSINOPHILS % (AUTO) 3.6 % (0-6); HEMATOCRIT 34.8 % (35.0-45.0); LYMPHOCYTES # (AUTO) 1.7 X10'3 (1.1-4.8); LYMPHOCYTES % (AUTO) 23.7 % (21-51); MEAN CORPUSCULAR HGB CONC 33.4 g/dL (33.0-36.5); MEAN CORPUSCULAR VOLUME 86.8 FL (78-98); MEAN PLATELET VOLUME 7.6 FL (7.4-10.4); NEUTROPHILS # (AUTO) 4.5 X10'3 (1.8-7.7); PLATELET COUNT 630 X10'3 (140-440); RED BLOOD COUNT 4.01 X10'6 (4.20-5.60); RED CELL DISTRIBUTION WIDTH 13.9 % (11.5-14.5); WHITE BLOOD COUNT 7.4 X10'3 (4.5-11.0)
[2024-05-15 06:05] LABS: ALANINE AMINOTRANSFERASE 20 U/L (12-78); ALBUMIN 1.5 G/DL (3.4-5.0); ALBUMIN/GLOBULIN RATIO 0.3 (1.1-1.5); ALKALINE PHOSPHATASE 47 IU/L (46-116); ANION GAP 8 (8-16); ASPARTATE AMINO TRANSFERASE 27 U/L (10-37); BILIRUBIN,TOTAL 0.5 MG/DL (0.1-1.0); BLOOD UREA NITROGEN 13 MG/DL (7-18); BUN/CREATININE RATIO 19.4 (10.0-20.0); CALCIUM 7.8 MG/DL (8.5-10.1); CHLORIDE 105 MMOL/L (99-107); CREATINE KINASE 42 U/L (26-192); CREATININE 0.67 MG/DL (0.40-0.90); GLUCOSE 104 MG/DL (70-104); POTASSIUM 4.1 MMOL/L (3.5-5.1); SODIUM 139 MMOL/L (135-145); TOTAL PROTEIN 5.8 G/DL (6.4-8.2); eCRCL 77 ML/MIN; eGFR 89 ML/MIN
[2024-05-15] MEDS: HYDROmorphone 1 mg/ml syringe IV PRN (17:38)
[2024-05-16] VITALS (8 sets, daily range): BP systolic 137–154; BP diastolic 69–70; PULSE 72–82; RESP 16–20; TEMP 97.2–97.9; O2SAT 94–98
[2024-05-17] VITALS (10 sets, daily range): BP systolic 125–150; BP diastolic 48–70; PULSE 76–92; RESP 12–20; TEMP 97.9–98.3; O2SAT 92–98
[2024-05-17 04:39] LABS: BASOPHILS # (AUTO) 0.1 X10'3 (0-0.2); EOSINOPHILS # (AUTO) 0.2 X10'3 (0-0.9); HEMOGLOBIN 10.6 g/dl (12.0-16.0); LYMPHOCYTES # (AUTO) 1.9 X10'3 (1.1-4.8); MONOCYTES # (AUTO) 0.8 X10'3 (0-0.9); NEUTROPHILS # (AUTO) 4.5 X10'3 (1.8-7.7); WHITE BLOOD COUNT 7.4 X10'3 (4.5-11.0)
[2024-05-17 04:42] LABS: BASOPHILS % (AUTO) 0.7 % (0-1); EOSINOPHILS % (AUTO) 2.7 % (0-6); HEMATOCRIT 31.4 % (35.0-45.0); LYMPHOCYTES % (AUTO) 25.6 % (21-51); MEAN CORPUSCULAR HEMOGLOBIN 29.4 PG (27.0-31.0); MEAN CORPUSCULAR HGB CONC 33.6 g/dL (33.0-36.5); MEAN CORPUSCULAR VOLUME 87.3 FL (78-98); MEAN PLATELET VOLUME 7.5 FL (7.4-10.4); MONOCYTES % (AUTO) 10.4 % (2-12); NEUTROPHILS % (AUTO) 60.6 % (42-75); PLATELET COUNT 692 X10'3 (140-440); RED CELL DISTRIBUTION WIDTH 14.1 % (11.5-14.5)
[2024-05-17 04:54] LABS: ALANINE AMINOTRANSFERASE 19 U/L (12-78); ALBUMIN 1.7 G/DL (3.4-5.0); ALBUMIN/GLOBULIN RATIO 0.4 (1.1-1.5); ALKALINE PHOSPHATASE 52 IU/L (46-116); ANION GAP 8 (8-16); ASPARTATE AMINO TRANSFERASE 23 U/L (10-37); BILIRUBIN,TOTAL 0.5 MG/DL (0.1-1.0); BLOOD UREA NITROGEN 16 MG/DL (7-18); BUN/CREATININE RATIO 21.3 (10.0-20.0); CALCIUM 8.3 MG/DL (8.5-10.1); CHLORIDE 104 MMOL/L (99-107); CREATININE 0.75 MG/DL (0.40-0.90); GLUCOSE 113 MG/DL (70-104); POTASSIUM 3.6 MMOL/L (3.5-5.1); SODIUM 139 MMOL/L (135-145); TOTAL CARBON DIOXIDE 27.2 MMOL/L (24-32); TOTAL PROTEIN 5.9 G/DL (6.4-8.2); eCRCL 69 ML/MIN; eGFR 78 ML/MIN
[2024-05-18] VITALS (28 sets, daily range): BP systolic 121–169; BP diastolic 52–82; PULSE 76–99; RESP 10–20; TEMP 97.6–98.9; O2SAT 90–100
[2024-05-18 04:45] LABS: BASOPHILS % (AUTO) 0.3 % (0-1); EOSINOPHILS # (AUTO) 0.2 X10'3 (0-0.9); EOSINOPHILS % (AUTO) 2.5 % (0-6); HEMATOCRIT 30.7 % (35.0-45.0); HEMOGLOBIN 10.5 g/dl (12.0-16.0); LYMPHOCYTES # (AUTO) 2.3 X10'3 (1.1-4.8); LYMPHOCYTES % (AUTO) 31.6 % (21-51); MEAN CORPUSCULAR HEMOGLOBIN 29.7 PG (27.0-31.0); MEAN CORPUSCULAR HGB CONC 34.1 g/dL (33.0-36.5); MEAN CORPUSCULAR VOLUME 87.2 FL (78-98); MEAN PLATELET VOLUME 7.4 FL (7.4-10.4); MONOCYTES # (AUTO) 0.8 X10'3 (0-0.9); MONOCYTES % (AUTO) 10.2 % (2-12); NEUTROPHILS # (AUTO) 4.1 X10'3 (1.8-7.7); NEUTROPHILS % (AUTO) 55.4 % (42-75); PLATELET COUNT 666 X10'3 (140-440); RED BLOOD COUNT 3.53 X10'6 (4.20-5.60); RED CELL DISTRIBUTION WIDTH 14.3 % (11.5-14.5); WHITE BLOOD COUNT 7.3 X10'3 (4.5-11.0)
[2024-05-18 04:56] LABS: INR 1.1 INR; PROTHROMBIN TIME 11.1 SECONDS (9.0-12.0)
[2024-05-18 05:00] LABS: ALANINE AMINOTRANSFERASE 17 U/L (12-78); ALBUMIN 1.9 G/DL (3.4-5.0); ALBUMIN/GLOBULIN RATIO 0.4 (1.1-1.5); ALKALINE PHOSPHATASE 58 IU/L (46-116); ANION GAP 8 (8-16); ASPARTATE AMINO TRANSFERASE 21 U/L (10-37); BILIRUBIN,TOTAL 0.4 MG/DL (0.1-1.0); BLOOD UREA NITROGEN 16 MG/DL (7-18); BUN/CREATININE RATIO 20.8 (10.0-20.0); CALCIUM 8.5 MG/DL (8.5-10.1); CHLORIDE 104 MMOL/L (99-107); CREATININE 0.77 MG/DL (0.40-0.90); GLUCOSE 120 MG/DL (70-104); MAGNESIUM 1.9 MG/DL (1.5-2.4); POTASSIUM 3.6 MMOL/L (3.5-5.1); SODIUM 138 MMOL/L (135-145); TOTAL CARBON DIOXIDE 26.3 MMOL/L (24-32); TOTAL PROTEIN 6.5 G/DL (6.4-8.2); eCRCL 67 ML/MIN; eGFR 76 ML/MIN
[2024-05-18] MEDS: LIDOcaine 4% (40 mg/ml) topical solution 50ml TP SCH (08:00)
[2024-05-18] MEDS: VANCOMYCIN LEVEL IV ONE (11:43)
[2024-05-18] MEDS ORDERED: hydrALAZINE 20mg/ml inj. IV PRN (11:50)
[2024-05-18] MEDS ORDERED: fentaNYL/PF 50MCG/1 ML 2ML syringe IV PRN (11:50)
[2024-05-18] MEDS ORDERED: morphine 2 MG/ML inj. syringe IV PRN (11:50)
[2024-05-18] MEDS: ringers solution, lacted 1,000 ML IV SCH (11:50)
[2024-05-18] MEDS ORDERED: labetalol 20mg/4ml (5mg/ml) syringe IV PRN (11:50)
[2024-05-18] MEDS ORDERED: vancomycin 1,000mg inj ONE (11:56)
[2024-05-18] MEDS ORDERED: BUPIVAcaine 2.5mg/ml inj 50ml vial (contains preservative) ONE (11:56)
[2024-05-18] MEDS ORDERED: desflurane 240ml liquid inh. IH ONE (13:20)
[2024-05-18] MEDS ORDERED: fentaNYL/PF 50MCG/1 ML 2ML syringe ONE (13:25)
[2024-05-18] MEDS ORDERED: propofol inj 20 ML IV ONE (13:35)
[2024-05-18] MEDS ORDERED: LIDOcaine 2% (20mg/ml) 5ml vial ONE (13:35)
[2024-05-18] MEDS ORDERED: midazolam 1 mg/ML 2ml injection ONE (13:35)
[2024-05-18] MEDS: morphine 4 MG/ML inj SYRINge IV PRN (14:35)
[2024-05-18] MEDS: fentaNYL/PF 50MCG/1 ML 2ML syringe IV PRN (15:04)
[2024-05-18] MEDS: VANCOMYCIN/WATER FOR INJ (PEG) 750MG/150 ML IVPB IV SCH (20:05)
[2024-05-18] MEDS: ondansetron/PF 4mg/2ml inj IV PRN (23:46)
[2024-05-19] VITALS (13 sets, daily range): BP systolic 130–159; BP diastolic 56–85; PULSE 73–97; RESP 16–20; TEMP 97.3–98.5; O2SAT 94–97
[2024-05-19 05:10] LABS: EOSINOPHILS % (AUTO) 0 % (0-6); HEMOGLOBIN 10.4 g/dl (12.0-16.0); LYMPHOCYTES # (AUTO) 1.3 X10'3 (1.1-4.8); MEAN PLATELET VOLUME 7.3 FL (7.4-10.4)
[2024-05-19 05:12] LABS: BASOPHILS % (AUTO) 0.3 % (0-1); HEMATOCRIT 31.1 % (35.0-45.0); LYMPHOCYTES % (AUTO) 19.9 % (21-51); MEAN CORPUSCULAR HEMOGLOBIN 29.5 PG (27.0-31.0); MEAN CORPUSCULAR HGB CONC 33.5 g/dL (33.0-36.5); MEAN CORPUSCULAR VOLUME 87.9 FL (78-98); MONOCYTES # (AUTO) 0.6 X10'3 (0-0.9); MONOCYTES % (AUTO) 9.7 % (2-12); NEUTROPHILS # (AUTO) 4.6 X10'3 (1.8-7.7); NEUTROPHILS % (AUTO) 70.1 % (42-75); PLATELET COUNT 630 X10'3 (140-440); RED BLOOD COUNT 3.53 X10'6 (4.20-5.60); RED CELL DISTRIBUTION WIDTH 14.2 % (11.5-14.5); WHITE BLOOD COUNT 6.6 X10'3 (4.5-11.0)
[2024-05-19 05:33] LABS: ALANINE AMINOTRANSFERASE 16 U/L (12-78); ALBUMIN/GLOBULIN RATIO 0.4 (1.1-1.5); ALKALINE PHOSPHATASE 54 IU/L (46-116); ANION GAP 7 (8-16); ASPARTATE AMINO TRANSFERASE 17 U/L (10-37); BILIRUBIN,TOTAL 0.4 MG/DL (0.1-1.0); BLOOD UREA NITROGEN 15 MG/DL (7-18); CALCIUM 8.3 MG/DL (8.5-10.1); CHLORIDE 104 MMOL/L (99-107); CREATININE 0.79 MG/DL (0.40-0.90); GLUCOSE 144 MG/DL (70-104); POTASSIUM 3.9 MMOL/L (3.5-5.1); SODIUM 138 MMOL/L (135-145); TOTAL CARBON DIOXIDE 26.6 MMOL/L (24-32); TOTAL PROTEIN 6.6 G/DL (6.4-8.2); eCRCL 63 ML/MIN; eGFR 74 ML/MIN
[2024-05-19] MEDS ORDERED: VANCOMYCIN LEVEL IV ONE (19:30)
[2024-05-20] VITALS (9 sets, daily range): BP systolic 145–146; BP diastolic 78–79; PULSE 74–83; RESP 18–25; TEMP 98.2–98.5; O2SAT 94–98
[2024-05-20 04:40] LABS: BASOPHILS # (AUTO) 0.1 X10'3 (0-0.2); BASOPHILS % (AUTO) 0.9 % (0-1); EOSINOPHILS # (AUTO) 0.1 X10'3 (0-0.9); EOSINOPHILS % (AUTO) 1.5 % (0-6); HEMATOCRIT 30.4 % (35.0-45.0); HEMOGLOBIN 10.2 g/dl (12.0-16.0); LYMPHOCYTES # (AUTO) 2.4 X10'3 (1.1-4.8); LYMPHOCYTES % (AUTO) 39.3 % (21-51); MEAN CORPUSCULAR HEMOGLOBIN 29.6 PG (27.0-31.0); MEAN CORPUSCULAR HGB CONC 33.7 g/dL (33.0-36.5); MEAN PLATELET VOLUME 7.7 FL (7.4-10.4); MONOCYTES # (AUTO) 0.7 X10'3 (0-0.9); MONOCYTES % (AUTO) 12.3 % (2-12); NEUTROPHILS # (AUTO) 2.8 X10'3 (1.8-7.7); PLATELET COUNT 641 X10'3 (140-440); RED BLOOD COUNT 3.45 X10'6 (4.20-5.60); RED CELL DISTRIBUTION WIDTH 14.3 % (11.5-14.5); WHITE BLOOD COUNT 6.1 X10'3 (4.5-11.0)
[2024-05-20 04:56] LABS: ALBUMIN 2.2 G/DL (3.4-5.0); ALBUMIN/GLOBULIN RATIO 0.5 (1.1-1.5); ALKALINE PHOSPHATASE 55 IU/L (46-116); ANION GAP 11 (8-16); ASPARTATE AMINO TRANSFERASE 21 U/L (10-37); BILIRUBIN,TOTAL 0.3 MG/DL (0.1-1.0); BLOOD UREA NITROGEN 20 MG/DL (7-18); BUN/CREATININE RATIO 26.7 (10.0-20.0); CALCIUM 8.6 MG/DL (8.5-10.1); CHLORIDE 103 MMOL/L (99-107); CREATININE 0.75 MG/DL (0.40-0.90); GLUCOSE 118 MG/DL (70-104); POTASSIUM 3.4 MMOL/L (3.5-5.1); SODIUM 140 MMOL/L (135-145); TOTAL CARBON DIOXIDE 26.5 MMOL/L (24-32); eCRCL 66 ML/MIN; eGFR 78 ML/MIN
[2024-05-20 05:03] LABS: ALANINE AMINOTRANSFERASE < 6 U/L (12-78)
[2024-05-20] MEDS ORDERED: magnesium sulf-water 4G/100mL 100 ML IV PRN (08:00)
[2024-05-20] MEDS ORDERED: potassium Cl 20 mEq SR tablet PO PRN (08:00)
[2024-05-20] MEDS ORDERED: magnesium sulf-water 2g/50mL 50 ML IV PRN (08:00)
[2024-05-20] MEDS ORDERED: potassium Cl 40MEQ/1/2NS 520ml 520 ML IV PRN (08:00)
[2024-05-20] MEDS: HYDROmorphone 1 mg/ml syringe IV ONE ×2 (08:08→09:05)
[2024-05-20] MEDS: K and/or MAG REPLACEMENT MC SCH (08:16)
[2024-05-20] MEDS: potassium Cl 20 mEq SR tablet PO PRN (10:22)
[2024-05-20] MEDS: ondansetron/PF 4mg/2ml inj IV PRN (11:04)
[2024-05-20] MEDS: HYDROmorphone 1 mg/ml syringe IV PRN (18:31)
[2024-05-21] VITALS (8 sets, daily range): BP systolic 105–157; BP diastolic 63–72; PULSE 71–86; RESP 16–18; TEMP 97.8–98.6; O2SAT 95–97
[2024-05-21 06:24] LABS: BASOPHILS # (AUTO) 0.1 X10'3 (0-0.2); BASOPHILS % (AUTO) 1.2 % (0-1); EOSINOPHILS # (AUTO) 0.3 X10'3 (0-0.9); EOSINOPHILS % (AUTO) 5.1 % (0-6); HEMATOCRIT 32.4 % (35.0-45.0); HEMOGLOBIN 11.1 g/dl (12.0-16.0); LYMPHOCYTES # (AUTO) 2.4 X10'3 (1.1-4.8); LYMPHOCYTES % (AUTO) 36.6 % (21-51); MEAN CORPUSCULAR HEMOGLOBIN 30.4 PG (27.0-31.0); MEAN CORPUSCULAR HGB CONC 34.4 g/dL (33.0-36.5); MEAN CORPUSCULAR VOLUME 88.2 FL (78-98); MEAN PLATELET VOLUME 8.1 FL (7.4-10.4); MONOCYTES # (AUTO) 0.8 X10'3 (0-0.9); MONOCYTES % (AUTO) 12.7 % (2-12); NEUTROPHILS # (AUTO) 2.9 X10'3 (1.8-7.7); NEUTROPHILS % (AUTO) 44.4 % (42-75); PLATELET COUNT 570 X10'3 (140-440); RED BLOOD COUNT 3.67 X10'6 (4.20-5.60); RED CELL DISTRIBUTION WIDTH 14.5 % (11.5-14.5); WHITE BLOOD COUNT 6.5 X10'3 (4.5-11.0)
[2024-05-21 06:34] LABS: ALANINE AMINOTRANSFERASE 19 U/L (12-78); ALBUMIN 2.6 G/DL (3.4-5.0); ALBUMIN/GLOBULIN RATIO 0.5 (1.1-1.5); ALKALINE PHOSPHATASE 59 IU/L (46-116); ANION GAP 7 (8-16); ASPARTATE AMINO TRANSFERASE 22 U/L (10-37); BILIRUBIN,TOTAL 0.4 MG/DL (0.1-1.0); BLOOD UREA NITROGEN 20 MG/DL (7-18); BUN/CREATININE RATIO 23.8 (10.0-20.0); CALCIUM 8.6 MG/DL (8.5-10.1); CHLORIDE 103 MMOL/L (99-107); CREATININE 0.84 MG/DL (0.40-0.90); GLUCOSE 94 MG/DL (70-104); SODIUM 140 MMOL/L (135-145); TOTAL CARBON DIOXIDE 29.6 MMOL/L (24-32); TOTAL PROTEIN 7.5 G/DL (6.4-8.2); eCRCL 59 ML/MIN; eGFR 68 ML/MIN
[2024-05-21] MEDS: oxyCODONE/APAP 10/325mg tablet PO PRN (12:21)
[2024-05-22] VITALS (8 sets, daily range): BP systolic 140–153; BP diastolic 63–77; PULSE 75–85; RESP 16–18; TEMP 97.3–97.8; O2SAT 92–96
[2024-05-23 06:00] VITALS: BP 112/54; PULSE 80; RESP 18; TEMP 96.5; O2SAT 95
[2024-05-23 08:22] VITALS: RESP 16; O2SAT 97
[2024-05-23 10:00] VITALS: BP 150/78; PULSE 78; RESP 18; TEMP 98; O2SAT 96
[2024-05-23] MEDS: HYDROmorphone 1 mg/ml syringe IV PRN (10:28)
[2024-05-23] MEDS ORDERED: OXYC1TAB17 PO (13:04)
[2024-05-23] MEDS ORDERED: DOCU100C40 PO (13:04)
[2024-05-23] MEDS ORDERED: DOCU-148 PO (13:06)
[2024-05-23 13:35] VITALS: RESP 18
[2024-05-23] MEDS ORDERED: AMLO5TAB16 PO (14:42)
== END 2024-05-23 14:00 | disposition home or self-care (01) | DRG 317 ==
LOC: ER 09:48 → ORTHO 4S 15:21 → PACU 15:58 → ER 19:19 → SUR 3N 05-07 17:45
PROVIDERS: ADMIT Family Medicine; ATTEND Family Medicine
PROC: 0KB90ZZ Excision of Right Lower Arm and Wrist Muscle, Open Approach (ICD-10-PCS; principal; 2024-05-04 14:31)
PROC: 0KB90ZZ Excision of Right Lower Arm and Wrist Muscle, Open Approach (ICD-10-PCS; 2024-05-05)
PROC: 05HF33Z Insertion of Infusion Device into Left Cephalic Vein, Percutaneous Approach (ICD-10-PCS; 2024-05-12)
PROC: B54NZZA Ultrasonography of Left Upper Extremity Veins, Guidance (ICD-10-PCS; 2024-05-12)
PROC: 0KB90ZZ Excision of Right Lower Arm and Wrist Muscle, Open Approach (ICD-10-PCS; 2024-05-18)
DX: M79.A11 Nontraumatic compartment syndrome of right upper extremity (principal); M62.82 Rhabdomyolysis; I96 Gangrene, not elsewhere classified; E87.1 Hypo-osmolality and hyponatremia; E88.09 Other disorders of plasma-protein metabolism, not elsewhere classified; L03.113 Cellulitis of right upper limb; M60.1 Interstitial myositis; E66.9 Obesity, unspecified; F43.10 Post-traumatic stress disorder, unspecified; Z20.822 Contact with and (suspected) exposure to COVID-19; J44.9 Chronic obstructive pulmonary disease, unspecified; B18.2 Chronic viral hepatitis C; I10 Essential (primary) hypertension; N39.0 Urinary tract infection, site not specified; J98.11 Atelectasis; G89.4 Chronic pain syndrome; F17.210 Nicotine dependence, cigarettes, uncomplicated; F15.10 Other stimulant abuse, uncomplicated; Z79.899 Other long term (current) drug therapy; Z56.0 Unemployment, unspecified; Z90.710 Acquired absence of both cervix and uterus; Z68.30 Body mass index [BMI] 30.0-30.9, adult
CPT/HCPCS: 36410; 36415; 71045; 73060; 73090; 73130; 73200; 76937; 80053; 80061; 80202; 81001; 82550; 82948; 83036; 83605; 83735; 83880; 83930; 84100; 84300; 84443; 85025; 85610; 85730; 86140; 87040; 87070; 87075; 87081; 87088; 87811; 93005; 93931; 94640; 94760; 97116; 97161; 97530; 97535; 99285; A4615; A4618; A4649; A6154; A6446; A6449; A7000; C1751; C1758; G0378; J0131; J0690; J1100; J1171; J1644; J1940; J2003; J2060; J2175; J2250; J2270; J2405; J2543; J2704; J3010; J3370; J3372; J3490; J7030; J7040; J7120

== ENCOUNTER 2024-05-25 20:46 | Inpatient (IN) | payer MEDICAID ==
[~2024-05-25] VITALS: Ht 162.6 cm; Wt 99.2 kg
[~2024-05-25 20:46] MED LIST changes: -ALBUTEROL INH; +AMLO5TAB16 PO; -BACL20TA PO; -BUPR100T4 PO; -BUSP10TA11 PO; +DOCU-148 PO; +DOCU100C40 PO; -LEVA15HF4 IH; -LISI20TA28 PO; -ONDA4TAB6 PO; -OXYC-150 PO; +OXYC1TAB17 PO
[2024-05-25] MEDS: CefTRIAXone 2gm/D5W 50ml BAG 50 ML IV ONE (21:44)
[2024-05-25] MEDS: normal saline 1000ml 1,000 ML IV ONE (21:44)
[2024-05-25] MEDS: HYDROmorphone 1 mg/ml syringe IV ONE (21:45)
[2024-05-25 21:47] LABS: BASOPHILS # (AUTO) 0.1 X10'3 (0-0.2); BASOPHILS % (AUTO) 1.1 % (0-1); EOSINOPHILS # (AUTO) 0.1 X10'3 (0-0.9); EOSINOPHILS % (AUTO) 1.5 % (0-6); HEMOGLOBIN 11.4 g/dl (12.0-16.0); LYMPHOCYTES % (AUTO) 35.6 % (21-51); MEAN CORPUSCULAR HEMOGLOBIN 30.4 PG (27.0-31.0); MEAN CORPUSCULAR HGB CONC 34.6 g/dL (33.0-36.5); MEAN PLATELET VOLUME 7.6 FL (7.4-10.4); MONOCYTES # (AUTO) 0.6 X10'3 (0-0.9); MONOCYTES % (AUTO) 10.9 % (2-12); NEUTROPHILS # (AUTO) 2.9 X10'3 (1.8-7.7); NEUTROPHILS % (AUTO) 50.9 % (42-75); PLATELET COUNT 453 X10'3 (140-440); RED BLOOD COUNT 3.75 X10'6 (4.20-5.60); RED CELL DISTRIBUTION WIDTH 15.2 % (11.5-14.5); WHITE BLOOD COUNT 5.7 X10'3 (4.5-11.0)
[2024-05-25 22:13] LABS: ALANINE AMINOTRANSFERASE 17 U/L (12-78); ALBUMIN 3.2 G/DL (3.4-5.0); ALBUMIN/GLOBULIN RATIO 0.6 (1.1-1.5); ALKALINE PHOSPHATASE 69 IU/L (46-116); ANION GAP 11 (8-16); ASPARTATE AMINO TRANSFERASE 23 U/L (10-37); BILIRUBIN,TOTAL 0.6 MG/DL (0.1-1.0); BLOOD UREA NITROGEN 9 MG/DL (7-18); BUN/CREATININE RATIO 12.5 (10.0-20.0); C-REACTIVE PROTEIN 0.25 MG/DL (0.0-0.5); CALCIUM 9.1 MG/DL (8.5-10.1); CHLORIDE 106 MMOL/L (99-107); CREATININE 0.72 MG/DL (0.40-0.90); GLUCOSE 112 MG/DL (70-104); POTASSIUM 3.4 MMOL/L (3.5-5.1); SODIUM 141 MMOL/L (135-145); TOTAL PROTEIN 8.3 G/DL (6.4-8.2); eCRCL 69 ML/MIN; eGFR 82 ML/MIN
[2024-05-25] MEDS: vancomycin/NS 1 GM ADD-VANTAGE 250 ML IV SCH (23:25)
[2024-05-26] MEDS ORDERED: magnesium Cl slow-release 64mg tablet PO PRN (00:45)
[2024-05-26] MEDS ORDERED: HYDROcodone/acetaminophen 5mg/325mg tablet PO PRN (00:45)
[2024-05-26] MEDS ORDERED: acetaminophen 325mg tablet PO PRN ×2 (00:45)
[2024-05-26] MEDS ORDERED: mag hydrox/Alum hydrox/simeth 30ml oral suspension PO PRN (00:45)
[2024-05-26] MEDS ORDERED: magnesium sulf-water 2g/50mL 50 ML IV PRN (00:45)
[2024-05-26] MEDS ORDERED: magnesium sulf-water 4G/100mL 100 ML IV PRN (00:45)
[2024-05-26] MEDS ORDERED: magnesium hydroxide 30ml (MOM) UD suspension PO PRN (00:45)
[2024-05-26] MEDS ORDERED: morphine 2 MG/ML inj. syringe IV PRN (00:45)
[2024-05-26] MEDS ORDERED: potassium Cl 20 mEq SR tablet PO PRN (00:45)
[2024-05-26] MEDS: normal saline 1000ml 1,000 ML IV SCH (02:06)
[2024-05-26] MEDS: piperacillin/tazo 4.5gm/100ml 100 ML IV SCH (02:06)
[2024-05-26] MEDS: morphine 2 MG/ML inj. syringe IV PRN (02:10)
[2024-05-26 03:24] LABS: BASOPHILS # (AUTO) 0.1 X10'3 (0-0.2); BASOPHILS % (AUTO) 1.3 % (0-1); EOSINOPHILS # (AUTO) 0.2 X10'3 (0-0.9); EOSINOPHILS % (AUTO) 3.1 % (0-6); HEMATOCRIT 31.6 % (35.0-45.0); HEMOGLOBIN 10.4 g/dl (12.0-16.0); LYMPHOCYTES # (AUTO) 2.1 X10'3 (1.1-4.8); LYMPHOCYTES % (AUTO) 38.1 % (21-51); MEAN CORPUSCULAR HEMOGLOBIN 29.2 PG (27.0-31.0); MEAN CORPUSCULAR HGB CONC 33.1 g/dL (33.0-36.5); MEAN CORPUSCULAR VOLUME 88.4 FL (78-98); MEAN PLATELET VOLUME 8.1 FL (7.4-10.4); MONOCYTES # (AUTO) 0.7 X10'3 (0-0.9); MONOCYTES % (AUTO) 12.9 % (2-12); NEUTROPHILS # (AUTO) 2.5 X10'3 (1.8-7.7); NEUTROPHILS % (AUTO) 44.6 % (42-75); PLATELET COUNT 451 X10'3 (140-440); RED BLOOD COUNT 3.57 X10'6 (4.20-5.60); RED CELL DISTRIBUTION WIDTH 14.7 % (11.5-14.5); WHITE BLOOD COUNT 5.6 X10'3 (4.5-11.0)
[2024-05-26 03:27] LABS: APTT 25 SECONDS (22-32); INR 1.1 INR; PROTHROMBIN TIME 11.8 SECONDS (9.0-12.0)
[2024-05-26 03:45] LABS: ALANINE AMINOTRANSFERASE 17 U/L (12-78); ALBUMIN 2.7 G/DL (3.4-5.0); ALBUMIN/GLOBULIN RATIO 0.6 (1.1-1.5); ALKALINE PHOSPHATASE 59 IU/L (46-116); ANION GAP 13 (8-16); ASPARTATE AMINO TRANSFERASE 19 U/L (10-37); BILIRUBIN,TOTAL 0.5 MG/DL (0.1-1.0); BLOOD UREA NITROGEN 7 MG/DL (7-18); BUN/CREATININE RATIO 11.3 (10.0-20.0); CHLORIDE 108 MMOL/L (99-107); CREATINE KINASE MB 0.7 ng/ml (0.3-3.6); CREATININE 0.62 MG/DL (0.40-0.90); GLUCOSE 98 MG/DL (70-104); MAGNESIUM 1.9 MG/DL (1.5-2.4); SODIUM 142 MMOL/L (135-145); TOTAL CARBON DIOXIDE 21.1 MMOL/L (24-32); TOTAL PROTEIN 7.1 G/DL (6.4-8.2); eCRCL 80 ML/MIN; eGFR > 90 ML/MIN
[2024-05-26 03:52] LABS: POTASSIUM 2.9 MMOL/L (3.5-5.1)
[2024-05-26] MEDS: potassium Cl 20 mEq SR tablet PO STA (04:18)
[2024-05-26] MEDS: K and/or MAG REPLACEMENT MC SCH (07:13)
[2024-05-26] MEDS: docusate sod 100mg capsule PO SCH (07:51)
[2024-05-26] MEDS: terbinafine 250mg tablet PO SCH (07:51)
[2024-05-26] MEDS: potassium Cl 40MEQ/1/2NS 520ml 520 ML IV PRN (07:53)
[2024-05-26] MEDS: HYDROcodone/acetaminophen 10/325mg tab PO PRN (09:19)
[2024-05-26 11:15] VITALS: BP 170/85; PULSE 74; RESP 15; TEMP 98.4; O2SAT 96
[2024-05-26 11:30] VITALS: RESP 15; O2SAT 96
[2024-05-26] MEDS: potassium Cl 20 mEq SR tablet PO PRN (11:36)
[2024-05-26 18:00] VITALS: BP 172/80; PULSE 77; RESP 18; TEMP 97.7; O2SAT 98
[2024-05-26] MEDS: enoxaparin 40mg/0.4ml syringe SQ SCH (19:32)
[2024-05-26] MEDS: VANCOMYCIN LEVEL IV ONE (21:58)
[2024-05-26 22:00] VITALS: BP 160/77; PULSE 74; RESP 16; TEMP 98; O2SAT 99
[2024-05-27 06:00] VITALS: BP 154/71; PULSE 69; RESP 17; TEMP 98.1; O2SAT 98
[2024-05-27 07:21] LABS: APTT 25 SECONDS (22-32); INR 1.1 INR; PROTHROMBIN TIME 11.5 SECONDS (9.0-12.0)
[2024-05-27 07:24] LABS: BASOPHILS # (AUTO) 0.1 X10'3 (0-0.2); BASOPHILS % (AUTO) 0.9 % (0-1); EOSINOPHILS # (AUTO) 0.3 X10'3 (0-0.9); EOSINOPHILS % (AUTO) 5.8 % (0-6); HEMATOCRIT 33.3 % (35.0-45.0); LYMPHOCYTES # (AUTO) 1.6 X10'3 (1.1-4.8); LYMPHOCYTES % (AUTO) 28.1 % (21-51); MEAN CORPUSCULAR HEMOGLOBIN 29.4 PG (27.0-31.0); MEAN PLATELET VOLUME 8.1 FL (7.4-10.4); MONOCYTES # (AUTO) 0.7 X10'3 (0-0.9); MONOCYTES % (AUTO) 12.9 % (2-12); NEUTROPHILS % (AUTO) 52.3 % (42-75); PLATELET COUNT 406 X10'3 (140-440); RED BLOOD COUNT 3.74 X10'6 (4.20-5.60); RED CELL DISTRIBUTION WIDTH 15.5 % (11.5-14.5); WHITE BLOOD COUNT 5.7 X10'3 (4.5-11.0)
[2024-05-27 08:00] VITALS: RESP 18; O2SAT 98
[2024-05-27 08:31] LABS: ALANINE AMINOTRANSFERASE 17 U/L (12-78); ALBUMIN 2.7 G/DL (3.4-5.0); ALBUMIN/GLOBULIN RATIO 0.6 (1.1-1.5); ALKALINE PHOSPHATASE 56 IU/L (46-116); ANION GAP 9 (8-16); ASPARTATE AMINO TRANSFERASE 24 U/L (10-37); BILIRUBIN,TOTAL 0.6 MG/DL (0.1-1.0); BLOOD UREA NITROGEN 8 MG/DL (7-18); BUN/CREATININE RATIO 8.9 (10.0-20.0); CALCIUM 8.2 MG/DL (8.5-10.1); CHLORIDE 111 MMOL/L (99-107); GLUCOSE 139 MG/DL (70-104); PHOSPHORUS 3.6 MG/DL (2.3-4.5); POTASSIUM 3.7 MMOL/L (3.5-5.1); SODIUM 141 MMOL/L (135-145); TOTAL CARBON DIOXIDE 21.2 MMOL/L (24-32); TOTAL PROTEIN 7.1 G/DL (6.4-8.2); eCRCL 55 ML/MIN; eGFR 63 ML/MIN
[2024-05-27 10:00] VITALS: BP 149/78; PULSE 71; RESP 20; TEMP 97.1; O2SAT 98
[2024-05-27] MEDS: DOXYCYCLINE 100MG CAPSULE PO SCH (11:21)
[2024-05-27] MEDS: ondansetron/PF 4mg/2ml inj IV PRN (12:04)
[2024-05-27 18:00] VITALS: BP 133/64; PULSE 74; RESP 18; TEMP 98.4; O2SAT 96
[2024-05-27] MEDS ORDERED: GADOTERATE MEGLUMINE 7.5 MMOL/15 ML VIAL IV ONE (19:22)
[2024-05-27 22:00] VITALS: BP 169/74; PULSE 76; RESP 18; TEMP 98.4; O2SAT 97
[2024-05-28 07:31] LABS: BASOPHILS % (AUTO) 0.8 % (0-1); EOSINOPHILS # (AUTO) 0.4 X10'3 (0-0.9); EOSINOPHILS % (AUTO) 6.5 % (0-6); HEMOGLOBIN 11.3 g/dl (12.0-16.0); LYMPHOCYTES # (AUTO) 2.1 X10'3 (1.1-4.8); LYMPHOCYTES % (AUTO) 34.8 % (21-51); MEAN CORPUSCULAR HEMOGLOBIN 29.5 PG (27.0-31.0); MEAN CORPUSCULAR HGB CONC 33.2 g/dL (33.0-36.5); MEAN CORPUSCULAR VOLUME 88.9 FL (78-98); MEAN PLATELET VOLUME 8.3 FL (7.4-10.4); MONOCYTES # (AUTO) 0.8 X10'3 (0-0.9); NEUTROPHILS # (AUTO) 2.7 X10'3 (1.8-7.7); NEUTROPHILS % (AUTO) 44.9 % (42-75); PLATELET COUNT 396 X10'3 (140-440); RED BLOOD COUNT 3.82 X10'6 (4.20-5.60); WHITE BLOOD COUNT 6.1 X10'3 (4.5-11.0)
[2024-05-28 08:10] LABS: APTT 25 SECONDS (22-32); INR 1.1 INR; PROTHROMBIN TIME 11.5 SECONDS (9.0-12.0)
[2024-05-28 08:23] LABS: ALANINE AMINOTRANSFERASE 18 U/L (12-78); ALBUMIN 2.7 G/DL (3.4-5.0); ALBUMIN/GLOBULIN RATIO 0.6 (1.1-1.5); ALKALINE PHOSPHATASE 54 IU/L (46-116); ANION GAP 9 (8-16); ASPARTATE AMINO TRANSFERASE 19 U/L (10-37); BILIRUBIN,TOTAL 0.4 MG/DL (0.1-1.0); BLOOD UREA NITROGEN 10 MG/DL (7-18); BUN/CREATININE RATIO 10.9 (10.0-20.0); CALCIUM 8.5 MG/DL (8.5-10.1); CHLORIDE 109 MMOL/L (99-107); CREATININE 0.92 MG/DL (0.40-0.90); GLUCOSE 102 MG/DL (70-104); MAGNESIUM 1.9 MG/DL (1.5-2.4); PHOSPHORUS 4.1 MG/DL (2.3-4.5); SODIUM 141 MMOL/L (135-145); TOTAL CARBON DIOXIDE 22.6 MMOL/L (24-32); TOTAL PROTEIN 6.9 G/DL (6.4-8.2); eCRCL 54 ML/MIN; eGFR 62 ML/MIN
[2024-05-28] MEDS ORDERED: DOXY-224 PO (11:11)
[2024-05-28] MEDS ORDERED: HYDR-3972 PO (11:11)
[2024-05-28 15:55] VITALS: RESP 22
== END 2024-05-28 16:25 | disposition home or self-care (01) | DRG 383 ==
LOC: ER 20:47 → ED HOLD 05-26 00:48 → ORTHO 4S 05-26 14:30
PROVIDERS: ADMIT Internal Medicine Critical Care Medicine; ATTEND Family Medicine
DX: L03.113 Cellulitis of right upper limb (principal); B19.20 Unspecified viral hepatitis C without hepatic coma; B35.1 Tinea unguium; E87.6 Hypokalemia; F15.10 Other stimulant abuse, uncomplicated; F32.A Depression, unspecified; F41.9 Anxiety disorder, unspecified; I10 Essential (primary) hypertension; J44.89 Other specified chronic obstructive pulmonary disease; Z90.710 Acquired absence of both cervix and uterus; Z88.8 Allergy status to other drugs, medicaments and biological substances
CPT/HCPCS: 36415; 71045; 73223; 80053; 80202; 82553; 83605; 83735; 84100; 84132; 84145; 85025; 85610; 85651; 85730; 86140; 87040; 87081; 87811; 93005; 93306; 96365; 96375; 97161; 97530; 99285; A6196; A6258; A6449; A9575; G0378; J0696; J1171; J1650; J2270; J2405; J2543; J3370; J3480; J7030